=== PATIENT | male | born 1995 | race Caucasian/White ===

== ENCOUNTER 2019-08-25 08:32 | Emergency (ER) | payer MEDICAID ==
--- NOTE | 2019-08-25 08:55 | EDM.PDOC ---
ED HPI GENERAL MEDICAL PROBLEM - General Chief Complaint: Genitourinary Problem Stated Complaint: PAIN AROUND LT KIDNEY Time Seen by Provider: 08/25/19 09:00 Source of Information: Reports: Patient History Limitations: Reports: No Limitations - History of Present Illness INITIAL COMMENTS - FREE TEXT/NARRATIVE: 24-year-old male with no past medical history presents with gradual onset progressive worsening left flank pain over the last 2 days. Pain is currently rated at 4/10, associated with hematuria, nausea. Denies fever, chills, vomiting, chest pain, shortness of breath. ROS: A 10-point review of systems, other than pertinent positives and negatives as stated per HPI, is otherwise negative PHYSICAL EXAM General: AOx4, GCS = 15, mild distress HEENT: dry mucous membrane Neck: supple, no meningismus, no Kernig or Brudzinski Cardiac: S1S2 RRR Respiratory: CTAB, no crackles or rales, no wheezing Abdomen: Soft, nontender, no rebound or guarding, nondistended, no pulsatile mass. Back: left CVAT Musculoskeletal: NVI distally, no deformity Neuro: No focal deficits, CN 2 - 12 WNL. MEDICAL DECISION MAKING: I reviewed the patients past medical records, lab and radiographic findings. I discussed the case with family members. My differential diagnosis included: Ureterolithiasis, kidney stones, pyelonephritis. Onset: Today Left Flank Pain Score (Numeric/FACES): 4 - Related Data Allergies Allergy/AdvReac Type Severity Reaction Status Date / Time No Known Allergies Allergy Verified 08/25/19 08:50 Home Meds: Home Meds Naproxen [Naprosyn] 500 mg PO Q12HR #10 tab 08/25/19 [Rx] Past Medical History - Past Health History Medical/Surgical History: Denies Medical/Surgical History - Infectious Disease History Infectious Disease History: Reports: Chicken Pox Social & Family History - Family History Family Medical History: Noncontributory ED ROS GENERAL - Review of Systems Review Of Systems: See Below (see dictation) ED EXAM, GI/ABD - Physical Exam Exam: See Below (see dictation) Course - Vital Signs Last Recorded V/S: Last Vital Signs Temp 98.3 F 08/25/19 08:51 Pulse 104 H 08/25/19 08:51 Resp 17 08/25/19 08:51 BP 131/91 H 08/25/19 08:51 Pulse Ox 98 08/25/19 08:51 - Orders/Labs/Meds Labs: Laboratory Tests 08/25/19 08/25/19 08/25/19 Range/Units 08:46 09:12 09:12 WBC 10.76 (4.0-11.0) K/uL RBC 5.29 (4.50-5.90) M/uL Hgb 16.3 (13.0-17.0) g/dL Hct 45.9 (38.0-50.0) % MCV 86.8 (80.0-98.0) fL MCH 30.8 (27.0-32.0) pg MCHC 35.5 (31.0-37.0) g/dL RDW Std Deviation 40.3 (28.0-62.0) fl RDW Coeff of Porsche 13 (11.0-15.0) % Plt Count 220 (150-400) K/uL MPV 10.30 (7.40-12.00) fL Neut % (Auto) 72.6 (48.0-80.0) % Lymph % (Auto) 18.5 (16.0-40.0) % [place] % (Auto) 7.5 (0.0-15.0) % Eos % (Auto) 1.1 (0.0-7.0) % Baso % (Auto) 0.3 (0.0-1.5) % Neut # (Auto) 7.8 H (1.4-5.7) K/uL Lymph # (Auto) 2.0 (0.6-2.4) K/uL [place] # (Auto) 0.8 (0.0-0.8) K/uL Eos # (Auto) 0.1 (0.0-0.7) K/uL Baso # (Auto) 0.0 (0.0-0.1) K/uL Nucleated RBC % 0.0 /100WBC Nucleated RBCs # 0 K/uL Sodium 138 (136-148) mmol/L Potassium 3.2 L (3.5-5.1) mmol/L Chloride 102 (98-107) mmol/L Carbon Dioxide 27.1 (21.0-32.0) mmol/L BUN 12 (7.0-18.0) mg/dL Creatinine 1.2 (0.8-1.3) mg/dL Est Cr Clr Drug Dosing 89.77 mL/min Estimated GFR (MDRD) > 60.0 ml/min Glucose 119 H (74-106) mg/dL Calcium 8.7 (8.5-10.1) mg/dL Total Bilirubin 0.9 (0.2-1.0) mg/dL AST 25 (15-37) IU/L ALT 49 (14-63) IU/L Alkaline Phosphatase 122 H (46-116) U/L Total Protein 7.7 (6.4-8.2) g/dL Albumin 4.1 (3.4-5.0) g/dL Globulin 3.6 (2.6-4.0) g/dL Albumin/Globulin Ratio 1.1 (0.9-1.6) Urine Color YELLOW Urine Appearance CLEAR Urine pH 6.0 (5.0-8.0) Ur Specific [place] 1.025 (1.001-1.035) Urine Protein NEGATIVE (NEGATIVE) mg/dL Urine Glucose (UA) NEGATIVE (NEGATIVE) mg/dL Urine Ketones NEGATIVE (NEGATIVE) mg/dL Urine Occult Blood NEGATIVE (NEGATIVE) Urine Nitrite NEGATIVE (NEGATIVE) Urine Bilirubin NEGATIVE (NEGATIVE) Urine Urobilinogen 0.2 (<2.0) EU/dL Ur Leukocyte Esterase NEGATIVE (NEGATIVE) Urine RBC 0-1 (0-2/HPF) Urine WBC 0-1 (0-5/HPF) Ur Epithelial Cells FEW (NONE-FEW) Urine Bacteria RARE (NEGATIVE) Urine Mucus LIGHT (NONE-MOD) - Re-Assessments/Exams Free Text/Narrative Re-Assessment/Exam: 08/25/19 10:18 After treatments and a prolonged observation period in the ER, the patient improved clinically and is stable for discharge. I performed a repeat examination and the patient has not demonstrated any new abnormal findings. Patient exhibits normal vital signs and has exhibited a normal gait. I advised the patient to return to the ER for reevaluation if symptoms worsened, and to follow up with their PCP within 2-3 days. Departure - Departure Time of Disposition: 10:18 Disposition: Home, Self-Care 01 Condition: Good Clinical Impression: Left flank pain - Discharge Information *PRESCRIPTION DRUG MONITORING PROGRAM REVIEWED*: No *COPY OF PRESCRIPTION DRUG MONITORING REPORT IN PATIENT SHELLY: No Prescriptions: Naproxen [Naprosyn] 500 mg PO Q12HR #10 tab Instructions: Flank Pain, Adult, [id number] Referrals: PCP,None [Primary Care Provider] - Forms: ED Department Discharge Additional Instructions: The following information is given to patients seen in the emergency department who are being discharged to home. This information is to outline your options for follow-up care. We provide all patients seen in our emergency department with a follow-up referral. The need for follow-up, as well as the timing and circumstances, are variable depending upon the specifics of your emergency department visit. If you don't have a primary care physician on staff, we will provide you with a referral. We always advise you to contact your personal physician following an emergency department visit to inform them of the circumstance of the visit and for follow-up with them and/or the need for any referrals to a consulting specialist. The emergency department will also refer you to a specialist when appropriate. This referral assures that you have the opportunity for follow-up care with a specialist. All of these measure are taken in an effort to provide you with optimal care, which includes your follow-up. Under all circumstances we always encourage you to contact your private physician who remains a resource for coordinating your care. When calling for follow-up care, please make the office aware that this follow-up is from your recent emergency room visit. If for any reason you are refused follow-up, please contact the [facility] Emergency Department at and asked to speak to the emergency department charge nurse. Rayna Bonner [facility] [address] [place] [address], [place] [id number] [facility] [address] [place] [address] Sepsis Event Note - Focused Exam Vital Signs: Vital Signs Temp Pulse Resp BP Pulse Ox 08/25/19 08:51 98.3 F 104 H 17 131/91 H 98 Date Exam was Performed: 08/25/19 Time Exam was Performed: 10:20
--- NOTE | 2019-08-25 09:26 | CT ---
CT abdomen and pelvis Technique: Multiple axial sections were obtained from above the dome of the diaphragm inferiorly through the pubic symphysis. Intravenous and oral contrast not utilized. Study has been performed as a ureteral stone protocol. Findings: Kidneys show no abnormal calcifications. No ureteral dilatation is seen. No ureteral calculi are seen. Visualized lung bases show nothing acute. Noncontrast appearance of the liver and spleen appear within normal limits. Adrenal glands show no nodule. Pancreas is within normal limits. Gallbladder is collapsed without definite calcified gallstones. Aorta shows no aneurysm. No retroperitoneal adenopathy or mesenteric abnormalities are seen. No pelvic mass or adenopathy is seen. No free fluid or inflammatory change is appreciated. Appendix is seen which is normal in size. Bone window settings were reviewed. No acute osseous finding is appreciated. Impression: 1. No renal calculi, ureteral dilatation or ureteral stone is seen. 2. Nothing acute is appreciated on noncontrast CT study of the abdomen and pelvis. Diagnostic code #1 This report was dictated in MDT
[2019-08-25 09:41] LABS: BLOOD UREA NITROGEN,BUN 12 mg/dL (7.0-18.0); CARBON DIOXIDE,CO2 27.1 mmol/L (21.0-32.0); CHLORIDE,CL 102 mmol/L (98-107); GLUCOSE RANDOM 119 mg/dL (74-106); POTASSIUM,K 3.2 mmol/L (3.5-5.1); SODIUM,NA 138 mmol/L (136-148)
== END 2019-08-25 10:28 | disposition home or self-care (01) ==
LOC: MW.ED 08:32
DX: R10.9 Unspecified abdominal pain (principal)
CPT/HCPCS: 36415; 74176; 74176-26; 80053; 81001; 85025; 99283; 99284-25